=== PATIENT | male | born 1985 | race Caucasian/White ===

== ENCOUNTER 2019-10-28 07:44 | Outpatient (CLI) | payer BC ==
--- NOTE | 2019-10-28 09:13 | MRI ---
MR the lumbar spine without contrast: 10/28/2019 History: Back pain, bilateral upper extremity radiculopathy COMPARISON: None. TECHNIQUE: Multiplanar multisequence MR images were obtained of lumbar spine without IV contrast FINDINGS: On the basis of 5 lumbar type vertebral bodies, conus medullaris terminates at [id number] level. Sagittal STIR imaging demonstrates no focal area of osseous marrow edema. T12-L1:Unremarkable L1-2:Unremarkable L2-3:Disc desiccation with disc space narrowing and mild anterior osteophyte. No significant central canal or neural foraminal stenosis. L3-4:Unremarkable L4-5:Partial disc desiccation-otherwise unremarkable. L5-S1:Unremarkable Image retroperitoneal structures demonstrateappear within normal limits. Incidental note is made of a 9-10 mm T2 hyperintense lesion within the midpole right kidney suggesting a small cyst. IMPRESSION: Mild disc disease with no significant central canal or neural foraminal stenosis within the lumbar sp ine.
--- NOTE | 2019-10-28 11:13 | MRI ---
MRI THORACIC SPINE NONCONTRAST: Date: 10-28-2019 History: 34-year-old male with thoracic radiculopathy. Comparison: None. FINDINGS: Vertebral body heights are maintained. No major bone marrow signal abnormality. Thoracic spinal cord is normal in size and signal. No high grade central spinal canal stenosis at any level. Bilateral mod erate neuroforaminal stenosis at T10-11 due to bilateral facet DJD at that level. Mild lateral curvat ure of upper thoracic spine. There are small disc-osteophyte complexes that protrude into the anterior aspect of the spinal canal at almost every level. T2-3: Bilateral paracentral, right contact with cord. T3-4: Bilateral paracentral, right contact with cord. T4-5: Right paracentral contract with cord. Left lateral. T5-6: Broad based central and bilateral paracentral, midline contact with cord. T6-7: Central and right paracentral contact with cord. T7-8: Shallow broad based, central contact with cord. T8-9: Central and left paracentral focal, contact with cord. T9-10: Central and bilateral paracentral. T10-11: Central and bilateral paracentral, left greater than right. IMPRESSION: Mild thoracic spondylosis, with small focal disc/osteophyte complexes protruding into the spinal hernandez l at almost every level, and contacting the spinal cord at many of those levels. POS: [facility]
== END 2019-10-28 07:45 | disposition home or self-care (01) ==
LOC: TBSIIMAG 07:44
PROVIDERS: ATTEND Neurological Surgery
DX: M47.24 Other spondylosis with radiculopathy, thoracic region (principal); M51.14 Intervertebral disc disorders with radiculopathy, thoracic region; M51.16 Intervertebral disc disorders with radiculopathy, lumbar region
CPT/HCPCS: 72146; 72148

== ENCOUNTER 2021-06-10 17:30 | Outpatient (CLI) | payer OTHER | END 2021-06-10 17:31 | disposition home or self-care (01) | LOC: SLEEPLAB 17:30 | PROVIDERS: ATTEND Family Medicine | DX: G47.33 Obstructive sleep apnea (adult) (pediatric) (principal); R53.83 Other fatigue; R06.83 Snoring | CPT/HCPCS: 95806 ==

== ENCOUNTER 2021-09-05 07:51 | Outpatient (CLI) | payer OTHER ==
[2021-09-05 09:22] LABS: Hemoglobin 15.8 g/dL (13.5-17.5); Mean Corpuscular HGB CONC 34.2 g/dL (32.0-36.0); Mean Corpuscular Hemoglobin 30.6 pg (27.0-33.0); Mean Corpuscular Volume 89.4 fl (81.2-95.1); Mean Platelet Volume 8.6 fl (7.4-10.4); Platelet Count 232 10x3/uL (150-450); RBC Distribution Width 11.7 % (11.5-14.5); Red Blood Cell (RBC) Count 5.17 10x6/uL (4.32-5.72); White Blood Cell (WBC) Count 5.1 10x3/uL (3.5-10.5)
[2021-09-05 09:25] LABS: Anion Gap 11 mmol/L (10-20); BUN (Urea Nitrogen) 13 mg/dL (8.9-20.6); Calc. Creatinine Clearance 0 mL/min (70-130); Calcium 8.9 mg/dL (7.8-10.44); Carbon Dioxide 25 mmol/L (22-29); Chloride 107 mmol/L (98-107); Glucose 95 mg/dL (70-105); Potassium 4.3 mmol/L (3.5-5.1); Sodium 139 mmol/L (136-145)
[2021-09-05 09:28] LABS: PTT 26.7 sec (22.0-33.0); Prothrombin Time 10.9 sec (9.5-12.1)
[2021-09-05 22:40] LABS: SARS-CoV-2 PCR by NAA Not Detected (NotDetected)
== END 2021-09-05 07:52 | disposition home or self-care (01) ==
LOC: LABBT 07:51
PROVIDERS: ATTEND Surgery
DX: Z01.818 Encounter for other preprocedural examination (principal); Z20.822 Contact with and (suspected) exposure to COVID-19
CPT/HCPCS: 80048; 85027; 85610; 85730; 86850; 86900; 86901; 93005; 93010; U0003; U0005

== ENCOUNTER 2022-12-18 09:40 | Outpatient (CLI) | payer BC | END 2022-12-18 09:41 | disposition home or self-care (01) | LOC: TBSIIMAG 09:40 | PROVIDERS: ATTEND Neurological Surgery | DX: M54.2 Cervicalgia (principal); M47.812 Spondylosis without myelopathy or radiculopathy, cervical region; M46.02 Spinal enthesopathy, cervical region; Z98.890 Other specified postprocedural states | CPT/HCPCS: 72050 ==